=== PATIENT | male | born 1955 | race Caucasian/White ===

== ENCOUNTER 2018-01-23 06:19 | Emergency (ER) | payer OTHER ==
[2018-01-23] MEDS ORDERED: DIPHTH/TETANUS/ACEL. PERTUSSIS IM ONE (06:25)
[2018-01-23] MEDS ORDERED: NS(*) 0.9% 1000 ML BAG 1,000 ML IV ONE ×2 (06:25→07:10)
[2018-01-23] MEDS ORDERED: HYDROmorphone* 1 MG/ML 1 MG/ML ML IVP ONE ×2 (06:25→08:10)
[2018-01-23] MEDS ORDERED: ONDANSETRON 4 MG/2 ML VIAL IVP ONE (06:25)
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
[2018-01-23] MEDS ORDERED: IOPAMIDOL 76% 75 ML INFUS BTL 75 ML ONE (06:39)
[2018-01-23 06:52] LABS: PLATELET COUNT, AUTOMATED 260 K/uL (150-450)
[2018-01-23] MEDS ORDERED: EMS NS 0.9%(*) 1000 ML BAG 1,000 ML IV ONE (07:00)
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
[2018-01-23 07:32] LABS: INR 1.12
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
[2018-01-23] MEDS ORDERED: DESMOPRESSIN ACET IVPB ONE ×2 (08:55→09:10)
[2018-01-23] MEDS ORDERED: NS 0.9% IVPB ONE ×2 (08:55→09:10)
== END 2018-01-23 10:23 | disposition short-term general hospital (02) ==
LOC: ER 06:21
DX: S06.6X1A Traumatic subarachnoid hemorrhage with loss of consciousness of 30 minutes or less, initial encounter (principal); S22.20XA Unspecified fracture of sternum, initial encounter for closed fracture; S22.32XA Fracture of one rib, left side, initial encounter for closed fracture; S22.000A Wedge compression fracture of unspecified thoracic vertebra, initial encounter for closed fracture; S01.01XA Laceration without foreign body of scalp, initial encounter; V48.5XXA Car driver injured in noncollision transport accident in traffic accident, initial encounter
CPT/HCPCS: 12005; 70450; 71045; 71260; 72125; 72170; 74177; 80305; 80320; 81001; 82150; 83605; 83690; 85025; 85610; 85730; 90471; 90715; 96361; 96365; 96375; 96376; 99285; J1170; J2405; J2597; J7030; J7050; Q9967; 82040; 82247; 82310; 82374; 82435; 82565; 82947; 84075; 84132; 84155; 84295; 84450; 84460; 84520; C1758

== ENCOUNTER → 2018-01-23 | Outpatient (CLI) | payer OTHER ==
[~2018-01-23] MED LIST: ASPI-1471 PO
== END ==
LOC: AMB 05:33
PROVIDERS: ATTEND Nurse Practitioner
DX: S01.91XA Laceration without foreign body of unspecified part of head, initial encounter (principal); M54.6 Pain in thoracic spine; V49.88XA Car occupant (driver) (passenger) injured in other specified transport accidents, initial encounter; Y92.411 Interstate highway as the place of occurrence of the external cause
CPT/HCPCS: A0425; A0427

== ENCOUNTER → 2018-01-23 | Outpatient (CLI) | payer OTHER | LOC: AMB 09:56 | PROVIDERS: ATTEND Nurse Practitioner | DX: S22.20XA Unspecified fracture of sternum, initial encounter for closed fracture (principal); S22.32XA Fracture of one rib, left side, initial encounter for closed fracture; S22.039A Unspecified fracture of third thoracic vertebra, initial encounter for closed fracture; S22.049A Unspecified fracture of fourth thoracic vertebra, initial encounter for closed fracture; S06.6X9A Traumatic subarachnoid hemorrhage with loss of consciousness of unspecified duration, initial encounter; V49.9XXA Car occupant (driver) (passenger) injured in unspecified traffic accident, initial encounter | CPT/HCPCS: A0425; A0426 ==